=== PATIENT | male | born 1945 | race Caucasian/White ===

== ENCOUNTER 2024-10-21 01:00 | Emergency (ER) | payer OTHER, SELFPAY ==
[2024-10-21] VITALS (7 sets, daily range): BP systolic 143–184; BP diastolic 70–104; BMI 27.3
--- NOTE | 2024-10-21 01:03 | EDRN ---
Patient taken right to CT.
--- NOTE | 2024-10-21 01:03 | ED.CVA ---
History of Present Illness
General
Chief Complaint: CVA/TIA Symptoms
Source: patient and ambulance crew
Time Seen by Provider: 10/21/24 01:02
Onset of Stroke Symptoms
Onset of symptoms known: Yes
Date of onset of symptoms: 10/21/24
Time of onset of symptoms: 12:00
History of Present Illness
History of Present Illness:
This patient is a 79-year-old male who reportedly was laying in bed with his awake and got up to use the restroom and was noted to slide out of bed presumably due to left-sided weakness. Medics were called. Patient was noted to have left
lower extremity weakness greater than left upper extremity weakness associated with slurred speech and questionable left facial droop. Accu-Chek was 233 on transport. Patient is not on anticoagulation/antiplatelet agents. Prior medical history
consistent with hypertension hypercholesterolemia. I met patient while he was being placed on the CT scanner bed, he is awake, alert, with slightly slurred speech. Full exam to be performed when he returns from CT. In the meantime, noncontrast
head CT, CTA ordered.
Phy Exam
Physical Exam
Physical Exam:
GENERAL: Alert , in no apparent distress
EYE: pupils equal and reactive, EOMI, no nystagmus, no photophobia
NECK: Supple, no significant adenopathy.
ENT: o/p clr, mmm.
CARDIAC: Regular rate and rhythm .
LUNGS: Clear breath sounds bilaterally, no acute respiratory distress, no wheezes/rales/rhonchi
ABDOMEN: Soft, without focal tenderness, no r/g, no cvat
NEUROLOGICAL: Alert and oriented, see NIH stroke scale
SKIN: Warm and dry, skin intact.
MUSCULOSKELETAL: No edema, well perfused.
PSYCH: Normal and appropriate interaction.
NIH Stroke Score
Level of Consciousness: 0 - Alert
LOC questions: 0-Answers both correctly
LOC Commands: 0-Performs both correctly
Best Gaze: 0-Normal
Visual Quinteros: 0=Normal, no visual loss
Facial palsy: 1=Minor paralysis
Motor - Right Arm: 0=No drift 10 seconds
Motor - Left Arm: 1=Drift < 10 seconds
Motor - Right Le-No drift 5 seconds
Motor - Left Le-Drift < 5 seconds
Limb Ataxia: 0-Absent
Sensation: 2-Severe loss
Best Language: 0-No aphasia
Dysarthria: 1-Mild slurring
Extinction and Inattention: 0-No abnormality
Total Score:: 6
Course
Orders/Labs/Results
Orders:
Orders
10/21/24 01:01
CT HEAD STROKE ALERT W/o Cont Urgent
Comment:
Reason For Exam: LEFT SIDED WEAKNESS
10/21/24 01:02
Electrocardiogram (*1) Stat
Reason for Study: Other
Other Reason for Exam: neuro symptoms
Electrocardiogram (*1) Urgent
Reason for Study: Other
Other Reason for Exam: Possible Stroke
Bedside Glucose- Treatment ONCE
Bedside Glucose- Treatment ONCE
Cardiac Monitoring- Treatment ONCE
Cardiac Monitoring- Treatment ONCE
EKG- Treatment ONCE
EKG- Treatment ONCE
IV Insert/Care/Rem.- Treatment PRN
Vital Signs As Directed
Frequency: Other
Weight As Directed
Frequency: Once
Comment: ZERO STRETCHER SCALE FOR ACCURATE WEIGHT
O2 Therapy [RESP] Urgent
Titrate/Wean O2 to maintain O2 sat greater than (%): 93
Special Instructions: MAINTAIN CONTINUOUS O2 SATS > OR = 93%
Pulse Ox/cont/shift [RESP] Stat
Quantity: 1
10/21/24 01:14
Complete Blood Count/With Diff Urgent
Comprehensive Metabolic Panel Urgent
PTT Urgent
Prothrombin Time Urgent
Troponin I Urgent
10/21/24 01:17
CT HEAD/NECK ANG STROKE ALERT Urgent
Comment:
Reason For Exam: bg bleed
10/21/24 01:28
Nicardipine 40 mg/200 ml [Cardene] 40 mg in 200 ml IV NOW
Initial dose in mg/hr, then titrate:: 5
Titrate to keep:: SBP 140 - 160 mmHg
Titrate by mg/hr:: 2.5 mg/hr
Frequency of titrations (minutes):: 5-15 minutes
Maximum dose in mg/hr:: 15
Begin to taper infusion when:: Remained at goal for 2hrs
Taper by mg/hr:: 2.5 mg/hr
Frequency of taper (minutes) if patient maintains goal:: every 15-30 minutes
Taper to off?: Yes
If infusion off & no longer maintaining goal:: Contact Provider
10/21/24 01:57
Urinalysis Reflex To Culture Urgent
Date Specimen was Collected: 10/21/24
Time Specimen was Collected: 01:57
Urine Microscopic Reflex Cult Urgent
Abnormal Lab Results
10/21/24 10/21/24 10/21/24
01:12 01:14 01:57
MCH 31.5 H pg
(27.0-31.0)
Plt Count 118 L 10^3/uL
(130-400)
MPV 11.1 H fL
(7.4-10.4)
Absolute Monos (auto) 0.7 H 10^3/uL
(0.1-0.6)
Monocytes % 10.3 H %
(1.7-9.3)
PT 14.7 H Sec
(11.4-14.6)
Glucose 210 H mg/dl
(70-99)
Ur Occult Blood Reflex 1+ A
(Negative)
Urine RBC 3-6 A /HPF
(0-2)
Urine Bacteria (Reflex) Few A
(Negative)
Urine Glucose 2+ A
(Negative)
Urine Albumin (Reflex) 1+ A
(Neg - Trace)
POC Glucose 193 H mg/dl
(70-99)
10/21/24 01:14
10/21/24 01:14
Vital Signs
Initial and Last Documented VS:
Initial Vital Signs
Temp Pulse Resp Pulse Ox
98.5 F 78 20 97
10/21/24 01:04 10/21/24 01:04 10/21/24 01:04 10/21/24 01:04
Last Documented Vital Signs
Temp Pulse Resp BP Pulse Ox
98.5 F 88 15 143/70 96
10/21/24 01:04 10/21/24 02:15 10/21/24 01:30 10/21/24 02:15 10/21/24 02:15
*Critical Care Note
Total Time (30-74mins, 75-104mins- exclusive of procedures): 31
Update Note
Update Note:
Patient presents to the Emergency Department with
Number and Complexity of Problems Addressed at the Encounter
� Chronic conditions affecting care:
� Acute Exacerbation and/or Progression of Chronic Illness:
� Differential Diagnosis includes:
Amount and/or Complexity of Data to be Reviewed and Analyzed
� I performed an independent evaluation of and my interpretation is:
EKG: Read by me, normal sinus rhythm, PVC, normal rate, LVH, no acute ischemia
CT: Verbal report from [facility] patient has a 2.7 cm intraparenchymal bleed in the right basal ganglia may be related to hypertension. Recommend CTA to rule out aneurysm. No shift, no mass effect.
Xrays:
Laboratory Studies:
Other:
� Review of other/old records reveals:
� Clinical information was obtained by an independent historian:
� Prescriptions/Medications Considered but not given:
� Further testing considered but not performed:
Risk of Complications and/or Morbidity or Mortality of Patient Management
� Social determinants of health affecting care:
� Discussion with other providers (PCP, Hospitalists, Consultants, etc):
� Escalation of care including admission/observation vs risk of discharge considered: [facility] report just received, CTA ordered.
1:30 AM CTA reordered as it was initially canceled given history of bleed but upon radiologist recommendation it has been reordered. In the meantime, close attention to blood pressure while we reach out to [facility] for transfer.
Nicardipine drip ordered. Will monitor closely.
1:47 AM patient remains unchanged. Case discussed with [facility], Dr. Dsouza and Dr. Miller who both accept the patient on transfer. Clarification that goal of SBP between 130-150 as best as possible. RN updated.
ED Attending Note
-
Portions of this chart may have been created with voice recognition software.� Occasional wrong word or��sound alike� substitutions may have occurred due to the inherent limitations of voice recognition software.
Discharge Plan
Departure
Patient Disposition: Acute Care Hospital
Date of Disposition: 10/21/24
Time of Disposition: 01:55
Discharge Problem:
Acute spontaneous intraparenchymal intracranial hemorrhage
Referrals:
UNKNOWN - PT DOES,NOT KNOW [Family Provider] -
Hospital Transfer
Other hospital: [facility]
I certify that the patient requires transfer: Yes
Discussed case with accepting physician: Heide Miller and Lian[facility]
Reason for transfer: higher level of care and specialties available
Interventions
Interventions:
*Risk Screen - Suicide Last Done: 10/21/24 02:31
*General Assessment Last Done: 10/21/24 01:15
*Neglect/Abuse Screening Last Done: 10/21/24 02:31
*ED- Fall Risk Assessment Last Done: 10/21/24 02:31
*ED COVID-19 Vaccine History Last Done: 10/21/24 02:31
*Nursing Disposition Last Done: 10/21/24 02:31
ED- Neurological Assessment Last Done: 10/21/24 02:02
Discharge Date and Time
Discharge Date/Time: 10/21/24 02:34
Print Language: CITIZEN [place]
[2024-10-21 01:14] LABS: Glucose - Point of Care 193 mg/dl (70-99)
[2024-10-21 01:32] LABS: % Basophils 0.6 % (0-2); % Eosinophils 1.3 % (0-6); % Immature Granulocytes 0.3 % (0-0.5); % Lymphocytes 34.7 % (20.5-51.1); % Monocytes 10.3 % (1.7-9.3); % Neutrophils 52.8 % (42.2-75.2); Absolute Eosinophils 0.1 10^3/uL (0-0.7); Absolute Lymphocytes 2.3 10^3/uL (1.2-3.4); Absolute Monocytes 0.7 10^3/uL (0.1-0.6); Absolute Neutrophils 3.5 10^3/uL (1.4-6.5); Hematocrit 42.2 % (39.0-52.0); Hemoglobin 14.9 g/dL (13.0-18.0); Mean Corp Hgb Conc. 35.3 g/dL (33.0-37.0); Mean Corpuscular Hgb 31.5 pg (27.0-31.0); Mean Corpuscular Volume 89.2 fL (80.0-94.0); Mean Platelet Volume 11.1 fL (7.4-10.4); Nucleated Red Blood Cells % 0 % (-); Platelet Count 118 10^3/uL (130-400); Red Blood Cell Count 4.73 10^6/uL (4.70-6.10); White Blood Cell Count 6.7 10^3/uL (4.8-10.8)
[2024-10-21 01:36] LABS: APTT 31.3 Sec (23.4-35.0); PT 14.7 Sec (11.4-14.6)
[2024-10-21 01:54] LABS: ALT (SGPT) 32 U/L (0-50); AST (SGOT) 34 U/L (17-59); Albumin 4.6 g/dl (3.5-5.0); Alkaline Phosphatase 88 U/L (38-126); Blood Urea Nitrogen 17 mg/dl (9-20); Calcium 9.6 mg/dl (8.4-10.2); Carbon Dioxide 27 mmol/L (22-30); Chloride 100 mmol/L (98-107); Estimated Creatinine Clearance 76 ml/min; Glucose 210 mg/dl (70-99); Potassium 4.3 mmol/L (3.5-5.1); Sodium 139 mmol/L (135-145); Total Bilirubin 0.9 mg/dl (0.2-1.3); Total Protein 7.1 g/dl (6.3-8.2); eGFR > 60.00
[2024-10-21] MEDS: CARDENE 200 IV (01:54)
[2024-10-21 02:03] LABS: Urine Albumin 1+ (Neg - Trace); Urine Bilirubin Negative (Negative); Urine Character Clear (Clear); Urine Color Yellow; Urine Glucose 2+ (Negative); Urine Ketone Negative (Negative); Urine Leukocyte Negative (Negative); Urine Nitrite Negative (Negative); Urine Occult Blood 1+ (Negative); Urine Specific Gravity 1.015 (<1.030); Urine Urobilinogen Negative (Neg - 1+)
[2024-10-21 02:15] LABS: Urine Amorphous Seen; Urine Squamous Cell 0-2 /LPF (Few)
[2024-10-21 02:16] LABS: Urine Bacteria Few (Negative)
== END 2024-10-21 02:34 | disposition short-term general hospital (02) ==
LOC: EMR 01:00
PROVIDERS: EMERGENCY PHYSICIAN Emergency Medicine
DX: I65.23 Occlusion and stenosis of bilateral carotid arteries (principal)
CPT/HCPCS: 99284; 96374; 70450; 70496; 70498; 80053; 81003; 81015; 82962; 84484; 85025; 85610; 85730; 93005; Q9967